=== PATIENT | male | born 1945 | race Hispanic/Latino ===

== ENCOUNTER 2022-10-23 08:16 | Emergency (ER) | payer MEDICARE ==
[~2022-10-23] VITALS: Ht 167.6 cm; Wt 71.7 kg
[2022-10-23 08:59] LABS: BASOPHILS # (AUTO) 0.1 (0.0-0.1); BASOPHILS % 0.7 % (0.0-1.0); EOSINOPHILS % 8.2 % (0.0-6.0); HEMATOCRIT 47.2 % (38.2-49.6); HEMOGLOBIN 14.3 g/dL (14.0-18.0); LYMPHOCYTES # (AUTO) 2.3 (1.0-3.2); LYMPHOCYTES % 19.2 % (18.0-39.1); MEAN CORPUSCULAR HGB CONC 30.3 g/dL (31-35); MEAN CORPUSCULAR VOLUME 95.7 fL (81-99); MONOCYTES % 8.6 % (4.4-11.3); NEUTROPHILS # (AUTO) 7.3 (2.1-6.9); NEUTROPHILS % 61.5 % (38.7-80.0); PLATELET COUNT 256 x10e3/uL (140-360); RED BLOOD COUNT 4.93 x10e6/uL (4.3-5.7); RED CELL DISTRIBUTION WIDTH 12.7 % (11.7-14.4)
[2022-10-23] MEDS ORDERED: DONNATAL/LIDOCAINE/MAALOX 30 ML SUSP PO SCH (09:00)
[2022-10-23] MEDS ORDERED: LIDOCAINE VISC 2% SOLN 15 ML UDC ONE (09:02)
[2022-10-23] MEDS ORDERED: BELLADONNA ALK/PHENOBARBITAL 5 ML UDC ONE (09:02)
[2022-10-23] MEDS ORDERED: MAGNESIUM/ALUMINUM/SIMETHICONE 30 ML UDC ONE (09:03)
[2022-10-23 09:23] LABS: ALBUMIN 3.9 g/dL (3.5-5.0); ALBUMIN/GLOBULIN RATIO 1.1 (0.8-2.0); ANION GAP 10.2 mmol/L (8-16); CALCIUM 9.5 mg/dL (8.4-10.2); CREATININE, SERUM 0.9 mg/dL (0.72-1.25); POTASSIUM 4.2 mmol/L (3.5-5.1)
[2022-10-23] MEDS ORDERED: PEPCID20 MG PO (10:26)
== END 2022-10-23 10:37 | disposition home or self-care (01) ==
LOC: ER 08:20
DX: R10.13 Epigastric pain (principal); K29.70 Gastritis, unspecified, without bleeding; R11.0 Nausea; R73.9 Hyperglycemia, unspecified; I10 Essential (primary) hypertension; Z87.442 Personal history of urinary calculi; R94.31 Abnormal electrocardiogram [ECG] [EKG]
CPT/HCPCS: 36415; 71045; 80053; 83690; 83880; 84484; 85025; 93005; 99284; C9113